=== PATIENT | male | born 1995 | race Caucasian/White ===

== ENCOUNTER 2019-01-15 08:36 | Emergency (ER) | payer SELFPAY ==
[~2019-01-15] VITALS: Ht 175.3 cm; Wt 90.9 kg
[2019-01-15 08:51] VITALS: BP 106/65
== END 2019-01-15 09:45 | disposition left against medical advice (07) ==
LOC: EMS 08:38
DX: S61.412D Laceration without foreign body of left hand, subsequent encounter (principal); Z53.21 Procedure and treatment not carried out due to patient leaving prior to being seen by health care provider; X58.XXXD Exposure to other specified factors, subsequent encounter

== ENCOUNTER 2019-04-14 08:14 | Emergency (ER) | payer SELFPAY ==
[~2019-04-14] VITALS: Ht 177.8 cm; Wt 90.9 kg
[2019-04-14 08:25] VITALS: BP 135/87
== END 2019-04-14 08:49 | disposition home or self-care (01) ==
LOC: EMS 08:14
DX: L02.411 Cutaneous abscess of right axilla (principal); I10 Essential (primary) hypertension

== ENCOUNTER 2019-06-23 16:28 | Emergency (ER) | payer SELFPAY ==
[~2019-06-23] VITALS: Ht 175.3 cm; Wt 90.9 kg
[2019-06-23] MEDS ORDERED: IBUPROFEN 800 MG TABLET PO ONE (17:45)
[2019-06-23] MEDS ORDERED: LIDOCAINE 1% 10 ML VIAL INJ ONE (17:45)
[2019-06-23] MEDS ORDERED: POVIDONE-IODINE 10% 15 ML SOLUTION UD TP ONE (17:45)
[2019-06-23] MEDS ORDERED: BACITRACIN 0.9 GM PACKET OINTMENT TP ONE (19:15)
[2019-06-23 19:44] VITALS: BP 144/87
== END 2019-06-23 19:50 | disposition home or self-care (01) ==
LOC: EMS 16:29
DX: S61.310A Laceration without foreign body of right index finger with damage to nail, initial encounter (principal); I10 Essential (primary) hypertension; W45.8XXA Other foreign body or object entering through skin, initial encounter; Y93.89 Activity, other specified; Y92.89 Other specified places as the place of occurrence of the external cause; Y99.8 Other external cause status
CPT/HCPCS: 12001; 99283; J3490

== ENCOUNTER 2022-04-20 19:10 | Emergency (ER) | payer MEDICAID ==
[~2022-04-20] VITALS: Ht 172.7 cm; Wt 86.4 kg
[2022-04-20] MEDS ORDERED: HYDROCODONE/ACETAMINOPHEN 5-325 MG TABLET PO ONE (20:45)
[2022-04-20] MEDS ORDERED: LIDOCAINE 5% TRANSDERMAL PATCH TD ONE (20:45)
[2022-04-20] MEDS ORDERED: IBUPROFEN 600 MG TABLET PO ONE (20:45)
[2022-04-20 21:10] LABS: APPEARANCE,URINE CLEAR (CLEAR); BILIRUBIN,URINE NEGATIVE (NEGATIVE); GLUCOSE, URINE (UA) NEGATIVE (NEGATIVE); KETONES,URINE NEGATIVE (NEGATIVE); LEUKOCYTE ESTERASE ,URINE NEGATIVE (NEGATIVE); NITRATE,URINE NEGATIVE (NEGATIVE); OCCULT BLOOD,URINE NEGATIVE (NEGATIVE); PH,URINE 6.5 (5.0-8.0); PROTEIN,URINE NEGATIVE (NEGATIVE); SPECIFIC GRAVITIY, URINE 1.013 (1.003-1.030); UROBILINOGEN,URINE <=1.0 mg/dL (<=1.0)
[2022-04-20 21:17] LABS: BACTERIA,URINE None Seen /HPF (None Seen); RBC,URINE 0-2 /HPF (0-2); SQUAMOUS EPITHELIAL CELL,UR Rare /LPF (None Seen)
[2022-04-20] MEDS ORDERED: BACL10TA PO (22:04)
[2022-04-20] MEDS ORDERED: IBUP-2070 PO (22:05)
[2022-04-20 22:17] VITALS: BP 134/86
== END 2022-04-20 22:19 | disposition home or self-care (01) ==
LOC: EMS 19:14
DX: R07.1 Chest pain on breathing (principal); M54.50 Low back pain, unspecified; I10 Essential (primary) hypertension; V49.49XA Driver injured in collision with other motor vehicles in traffic accident, initial encounter; Y93.89 Activity, other specified; Y92.89 Other specified places as the place of occurrence of the external cause; Y99.8 Other external cause status
CPT/HCPCS: 71046; 72100; 81001; 99284

== ENCOUNTER 2023-08-02 09:08 | Emergency (ER) | payer MEDICAID ==
[~2023-08-02] VITALS: Ht 175.3 cm; Wt 95.5 kg
[~2023-08-02 09:08] MED LIST: BACL10TA PO; IBUP-1492 PO
[2023-08-02 09:22] VITALS: TEMP 97.9
[2023-08-02] MEDS ORDERED: METHOCARBAMOL 500 MG TABLET PO ONE (10:00)
[2023-08-02] MEDS ORDERED: KETOROLAC TROMETHAMINE 60 MG/2 ML VIAL IM ONE (10:00)
[2023-08-02] MEDS ORDERED: ACET-66 PO (11:11)
[2023-08-02] MEDS ORDERED: IBUP-1554 PO (11:11)
[2023-08-02] MEDS ORDERED: METH-812 PO (11:11)
[2023-08-02 11:22] VITALS: BP 139/89; PULSE 61; RESP 18
== END 2023-08-02 11:24 | disposition home or self-care (01) ==
LOC: EMS 09:08
DX: S39.012A Strain of muscle, fascia and tendon of lower back, initial encounter (principal); I10 Essential (primary) hypertension; Z98.890 Other specified postprocedural states; X58.XXXA Exposure to other specified factors, initial encounter; Y93.89 Activity, other specified; Y92.89 Other specified places as the place of occurrence of the external cause; Y99.8 Other external cause status
CPT/HCPCS: 99284; 72100; 72170; 96372; J1885

== ENCOUNTER 2024-10-27 12:12 | Emergency (ER) | payer MEDICAID ==
[~2024-10-27] VITALS: Ht 175.3 cm; Wt 87.3 kg
[~2024-10-27 12:12] MED LIST changes: +ACET-66 PO; -BACL10TA PO; -IBUP-1492 PO; +IBUP-1554 PO; +METH-812 PO
[2024-10-27 12:16] VITALS: BP 135/82; PULSE 109; RESP 16; TEMP 98.6; O2SAT 100
[2024-10-27] MEDS: IBUPROFEN 600 MG TABLET PO ONE (12:59)
[2024-10-27] MEDS: ACETAMINOPHEN 500 MG TABLET PO ONE (13:00)
[2024-10-27] MEDS ORDERED: ACET-3385 PO (13:15)
[2024-10-27] MEDS ORDERED: IBUP-1492 PO (13:15)
== END 2024-10-27 13:40 | disposition home or self-care (01) ==
LOC: EMS 12:12
DX: S83.91XA Sprain of unspecified site of right knee, initial encounter (principal); I10 Essential (primary) hypertension; G89.29 Other chronic pain; X58.XXXA Exposure to other specified factors, initial encounter; Y93.89 Activity, other specified; Y92.89 Other specified places as the place of occurrence of the external cause; Y99.8 Other external cause status
CPT/HCPCS: 99283